=== PATIENT | female | born 1965 | race Caucasian/White ===

== ENCOUNTER 2018-02-16 13:45 | Emergency (ER) | payer OTHER ==
[2018-02-16] MEDS ORDERED: CHLORHEXIDINE GLUCONATE 4 % 15 ML UD TOP ONE (13:59)
[2018-02-16] MEDS ORDERED: TETANUS,DIPHTHERIA,PERTUSSIS 1 EA SYG IM ONE (14:13)
[2018-02-16] MEDS ORDERED: SULFA/TRIMETH 800/160 (DS) TAB 1 EA TAB PO ONE (14:13)
[2018-02-16 14:17] VITALS: TEMP 98.4; O2SAT 100
[2018-02-16] MEDS ORDERED: KETOROLAC TROMETHAMINE INJ 30 MG/ML VIAL IM ONE (14:29)
[2018-02-16] MEDS ORDERED: NEOMYCIN-BACITRACIN-POLYMYXIN 0.9 GM UD TOP ONE (14:44)
--- NOTE | 2018-02-16 14:48 | ED.PDOC ---
History of Present Illness - General Chief Complaint: Laceration Stated Complaint: laceration to left knee Time Seen by Provider: 02/16/18 14:02 Source: patient Exam Limitations: no limitations - History of Present Illness Initial Comments: the patient is a 52-year-old female presenting to the emergency room secondary to a L-shaped laceration over the kneecap of her left knee. The patient sustained this approximately an hour or hour and half before arrival. The patient was triple running when she slipped and fell. She actually completed the rest of the 3 miles of the race with the laceration. She is neurovascularly intact distally. Patellar mechanism is obviously intact. Wound is fairly dirty. The wound was irrigated and cleaned. No obvious evidence of any patellar fracture. No evidence of any dislocation. Risk and benefits of repair were explained prior and patient did agree to proceed. After cleaning 1% Xylocaine 8 cc was used for local anesthetic. 8 simple sutures of 3-0 Ethilon were used for reapproximation. Estimated blood loss is probably 20 cc in total. Timing/Duration: 1-3 hours Severity: moderate Improving Factors: nothing Worsening Factors: nothing Associated Symptoms: denies symptoms Allergies/Adverse Reactions: Allergies NO KNOWN ALLERGY Allergy (Verified 02/16/18 14:08) Home Medications: Ambulatory Orders Sulfa/Trimeth 800/160 (Ds) Tab [Bactrim DS Tab] 1 ea PO BID #14 tab 02/16/18 Review of Systems - Review of Systems Constitutional: States: no symptoms reported EENTM: States: no symptoms reported Respiratory: States: no symptoms reported Cardiology: States: no symptoms reported Gastrointestinal/Abdominal: States: no symptoms reported Genitourinary: States: no symptoms reported Musculoskeletal: States: no symptoms reported Skin: States: see HPI Neurological: States: no symptoms reported Endocrine: States: no symptoms reported All other Systems: No Change from Baseline Past Medical History (General) - Patient Medical History Hx Stroke: No Hx of COPD: No Hx Congestive Heart Failure: No Hx Hypertension: Yes Hx Thyroid Disease: Yes Hx Diabetes: No - Social History Hx Tobacco Use: Yes Family Medical History - Family History Mother Family History: No Known Physical Exam - Physical Exam General Appearance: Alert, Comfortable, No apparent distress Eye Exam: bilateral normal Ears, Nose, Throat: hearing grossly normal Neck: full range of motion, supple Respiratory: no respiratory distress, no accessory muscle use Cardiovascular/Chest: normal peripheral pulses, no edema Peripheral Pulses: dorsalis pedis,right: 2+, dorsalis pedis,left: 2+, posterior tibialis,right: 2+, posterior tibialis,left: 2+ Rectal Exam: deferred Back Exam: normal inspection Extremity: normal range of motion, no pedal edema, no calf tenderness, normal capillary refill, other - range of motion of the knee is preserved. Strength is preserved. 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 it does extend down through the skin Comments: Vital Signs - 24 hr 02/16/18 14:09 Temperature 98.4 F Pulse Rate [ 84 right brachial] Respiratory 18 Rate Blood Pressure 124/77 [right brachial ] O2 Sat by Pulse 100 Oximetry Progress - Progress Progress: 02/16/18 14:49 the patient is a 52-year-old female presenting after a laceration that she sustained while Ernest running to the anterior left knee The laceration was repaired with a 8 simple sutures of 3-0 Ethilon. The wound was irrigated and cleaned. The patient did receive a tetanus shot and a Toradol shot. She was also started on Bactrim which she will continue twice daily for the next 7 days. She needs to monitor for any evidence of infection. She needs to try and bend the knee minimally for the next week to 2 weeks while the sutures remain in place. She can use a knee immobilizer at night to help prevent accidental damage to the wound site. ER warnings were given for any worsening. Departure - Departure Clinical Impression: Laceration of knee Qualifiers: Encounter type: initial encounter Laterality: left Qualified Code(s): S81.012A - Laceration without foreign body, left knee, initial encounter Disposition: Discharge to Home or Self Care Condition: Fair Departure Forms: ED Discharge - Pt. Copy, Patient Portal Self Enrollment Instructions: DI for Laceration Repair, DI for Laceration Repair -- Simple Diet: regular diet Activity: no exercise Prescriptions: Sulfa/Trimeth 800/160 (Ds) Tab [Bactrim DS Tab] 1 ea PO BID #14 tab Home Medications: Ambulatory Orders Sulfa/Trimeth 800/160 (Ds) Tab [Bactrim DS Tab] 1 ea PO BID #14 tab 02/16/18 Additional Instructions: the patient is a 52-year-old female presenting after a laceration that she sustained while [employer] running to the anterior left knee The laceration was repaired with a 8 simple sutures of 3-0 Ethilon. The wound was irrigated and cleaned. The patient did receive a tetanus shot and a Toradol shot. She was also started on Bactrim which she will continue twice daily for the next 7 days. She needs to monitor for any evidence of infection. She needs to try and bend the knee minimally for the next week to 2 weeks while the sutures remain in place. She can use a knee immobilizer at night to help prevent accidental damage to the wound site. ER warnings were given for any worsening.
--- NOTE | 2018-02-16 15:10 | RAD ---
PROCEDURE: Knee,Left Complete Clinical History: knee lac after fall Indication: Same as above. Comparison: None . Technique: 3.0 Views of the left knee were done. Findings: There is no evidence of acute fractures or dislocations involving the bones of the left knee joint. There is no evidence of any significant suprapatellar joint effusion. There is no evidence of any periosteal reactions. The femorotibial and patellofemoral joint spaces are well-maintained. There is no chondrocalcinosis of the menisci or any osteochondral defects. The bone mineralization is normal for patient's age and sex. The soft tissues are radiographically unremarkable. There is no visualization of any radiopaque foreign bodies in the evaluated soft tissues. Impression: Negative for acute bony trauma involving the left knee Place of interpretation: [id number]. Electronically signed by: Caleb Davis MD 02/16/2018 3:09 PM CDT Workstation: [id number]
[2018-02-16 15:16] VITALS: BP 145/77
== END 2018-02-16 15:15 | disposition home or self-care (01) ==
LOC: ER 13:45
DX: S81.012A Laceration without foreign body, left knee, initial encounter (principal); Z23 Encounter for immunization; I10 Essential (primary) hypertension; E07.9 Disorder of thyroid, unspecified; W01.0XXA Fall on same level from slipping, tripping and stumbling without subsequent striking against object, initial encounter; Y93.02 Activity, running; Y92.89 Other specified places as the place of occurrence of the external cause
CPT/HCPCS: 73562; 90471; 90715; J1885